=== PATIENT | male | born 1965 | race Caucasian/White ===

== ENCOUNTER 2016-03-26 09:22 | Outpatient (CLI) | payer OTHER ==
[2014-02-28 16:39] VITALS: BP 144/103
[2016-03-26 10:07] LABS: eGFR (African) > 60; eGFR (Non-African) > 60
== END 2016-03-26 09:23 ==
LOC: LAB 09:22
PROVIDERS: ATTEND Physician Assistant
DX: Z00.00 Encounter for general adult medical examination without abnormal findings (principal); R73.9 Hyperglycemia, unspecified; Z13.6 Encounter for screening for cardiovascular disorders
CPT/HCPCS: 36415; 80053; 80061; 83036

== ENCOUNTER 2017-09-08 07:33 | Outpatient (CLI) | payer OTHER ==
[2014-02-28 16:39] VITALS: BP 144/103
[2017-09-08 08:57] LABS: eGFR (African) > 60; eGFR (Non-African) > 60
== END 2017-09-08 10:48 ==
LOC: LAB 07:33
PROVIDERS: ATTEND Physician Assistant
DX: Z00.00 Encounter for general adult medical examination without abnormal findings (principal); Z13.6 Encounter for screening for cardiovascular disorders; Z12.5 Encounter for screening for malignant neoplasm of prostate; K21.9 Gastro-esophageal reflux disease without esophagitis
CPT/HCPCS: 36415; 80053; 80061; 86677; G0103